=== PATIENT | female | born 1970 | race Hispanic/Latino ===

== ENCOUNTER 2017-05-20 19:51 | Emergency (ER) | payer BC, OTHER ==
[2017-05-20] MEDS ORDERED: SODIUM CHLORIDE 0.9% 1000ML 1,000 ML IV ONE (20:48)
[2017-05-20] MEDS ORDERED: KETOROLAC TROMETHAMINE 30MG/ML ONE (20:48)
[2017-05-20 20:57] LABS: APPEARANCE,URINE Clear (CLEAR); BILIRUBIN,URINE Negative (NEGATIVE); COLOR,URINE Yellow (YELLOW); GLUCOSE, URINE (UA) Negative (NEGATIVE); KETONES,URINE Negative (NEGATIVE); LEUKOCYTE ESTERASE ,URINE Small (NEGATIVE); NITRATE,URINE Negative (NEGATIVE); OCCULT BLOOD,URINE Negative (NEGATIVE); PROTEIN,URINE Negative (NEGATIVE); UROBILINOGEN,URINE 0.2 mg/dL (0.2-1.0)
[2017-05-20 21:09] LABS: BASOPHILS % (AUTO) 0.5 % (0.0-5.0); EOSINOPHILS % (AUTO) 3.4 % (0.0-8.0); HEMATOCRIT 34.8 % (36-48); LYMPHOCYTES % (AUTO) 35.1 % (21.0-51.0); MEAN CORPUSCULAR HEMOGLOBIN 29.7 pg (27.0-33.0); MEAN CORPUSCULAR HGB CONC 35.9 g/dL (32.0-36.0); MEAN CORPUSCULAR VOLUME 82.8 fL (79-99); MONOCYTES % (AUTO) 5.4 % (3.0-13.0); NEUTROPHILS % (AUTO) 55.6 % (40.0-77.0); NUCLEATED RED BLOOD CELLS 0.1 % (0.0-0.19); PLATELET COUNT (AUTO) 289 K/uL (130-400); RED CELL DISTRIBUTION WIDTH 13.2 % (11.0-15.5); WHITE BLOOD COUNT (AUTO) 8.3 K/uL (4.8-10.8)
[2017-05-20 21:32] LABS: CREATININE 0.6 mg/dL (0.5-1.5); POTASSIUM 3.6 mmol/L (3.5-5.1)
[2017-05-20 21:59] LABS: BACTERIA,URINE Rare /HPF (None Seen); MUCUS,URINE Rare LPF (None Seen); RBC,URINE 0-1 /HPF (0-1); SQUAMOUS EPITHELIAL CELL,UR Few /LPF (0-2)
== END 2017-05-20 22:59 | disposition home or self-care (01) ==
LOC: EDH 19:51
DX: R10.9 Unspecified abdominal pain (principal); N39.0 Urinary tract infection, site not specified; Z88.8 Allergy status to other drugs, medicaments and biological substances; Z90.710 Acquired absence of both cervix and uterus
CPT/HCPCS: 36415; 74176; 80048; 81001; 85025; 96361; 96374; 99285; J1885; J7030

== ENCOUNTER 2018-08-19 10:15 | Emergency (ER) | payer OTHER ==
[2018-08-19 10:41] LABS: BASOPHILS % (AUTO) 0.8 % (0.0-5.0); EOSINOPHILS % (AUTO) 3.1 % (0.0-8.0); HEMATOCRIT 37.2 % (36-48); LYMPHOCYTES % (AUTO) 33.6 % (21.0-51.0); MEAN CORPUSCULAR HEMOGLOBIN 29.1 pg (27.0-33.0); MEAN CORPUSCULAR HGB CONC 34.7 g/dL (32.0-36.0); MONOCYTES % (AUTO) 3.7 % (3.0-13.0); NEUTROPHILS % (AUTO) 58.8 % (40.0-77.0); PLATELET COUNT (AUTO) 262 K/uL (130-400); RED BLOOD CELL COUNT(AUTO) 4.43 MIL/uL (4.00-5.50); RED CELL DISTRIBUTION WIDTH 13.5 % (11.0-15.5); WHITE BLOOD COUNT (AUTO) 7.2 K/uL (4.8-10.8)
[2018-08-19 10:46] LABS: CREATININE 0.6 mg/dL (0.5-1.5); POTASSIUM 3.6 mmol/L (3.5-5.1)
[2018-08-19 10:51] LABS: ALBUMIN 3.7 g/dL (3.5-5.0); BILIRUBIN,TOTAL 0.3 mg/dL (0.2-1.0)
[2018-08-19] MEDS ORDERED: SODIUM CHLORIDE 0.9% 1000ML 1,000 ML IV ONE (11:02)
== END 2018-08-19 15:16 | disposition home or self-care (01) ==
LOC: EDH 10:15
DX: R00.2 Palpitations (principal); R07.89 Other chest pain; Z90.710 Acquired absence of both cervix and uterus; Z91.018 Allergy to other foods
CPT/HCPCS: 36415; 71045; 80053; 82550; 83735; 84443; 84484 ×2; 85025; 93005 ×2; 99285; J7030

== ENCOUNTER 2018-09-06 09:57 | Observation (INO) | payer BC, OTHER ==
[~2018-09-06] VITALS: Ht 157.5 cm; Wt 74.3 kg
[2018-09-06] MEDS ORDERED: ASPIRIN 325 MG TABLET ONE (10:13)
[2018-09-06 10:52] LABS: BASOPHILS % (AUTO) 0.6 % (0.0-5.0); EOSINOPHILS % (AUTO) 1.5 % (0.0-8.0); HEMATOCRIT 39.7 % (36-48); LYMPHOCYTES % (AUTO) 22.7 % (21.0-51.0); MEAN CORPUSCULAR HEMOGLOBIN 28.9 pg (27.0-33.0); MEAN CORPUSCULAR HGB CONC 34.5 g/dL (32.0-36.0); MEAN CORPUSCULAR VOLUME 83.8 fL (79-99); MONOCYTES % (AUTO) 5.2 % (3.0-13.0); NUCLEATED RED BLOOD CELLS 0.1 % (0.0-0.19); PLATELET COUNT (AUTO) 252 K/uL (130-400); RED BLOOD CELL COUNT(AUTO) 4.73 MIL/uL (4.00-5.50); RED CELL DISTRIBUTION WIDTH 13.1 % (11.0-15.5); WHITE BLOOD COUNT (AUTO) 7.2 K/uL (4.8-10.8)
[2018-09-06 11:02] LABS: CREATININE 0.6 mg/dL (0.5-1.5); POTASSIUM 3.8 mmol/L (3.5-5.1)
[2018-09-06 11:14] LABS: ALBUMIN 3.9 g/dL (3.5-5.0); BILIRUBIN,TOTAL 0.5 mg/dL (0.2-1.0); TOTAL PROTEIN, SERUM 8.2 g/dL (6.0-8.3)
[2018-09-06 11:19] LABS: PARTIAL THROMBOPLASTIN TIME 27.4 SEC (26.3-35.5); PROTHROMBIN TIME 10.5 SEC (9.6-11.6)
[2018-09-06 11:26] LABS: APPEARANCE,URINE Clear (CLEAR); BILIRUBIN,URINE Negative (NEGATIVE); COLOR,URINE Yellow (YELLOW); GLUCOSE, URINE (UA) Negative (NEGATIVE); KETONES,URINE Negative (NEGATIVE); LEUKOCYTE ESTERASE ,URINE Negative (NEGATIVE); NITRATE,URINE Negative (NEGATIVE); OCCULT BLOOD,URINE Negative (NEGATIVE); PROTEIN,URINE Negative (NEGATIVE); UROBILINOGEN,URINE 0.2 mg/dL (0.2-1.0)
[2018-09-06] MEDS: SODIUM CHLORIDE 0.9% 1000ML 1,000 ML IV SCH ×2 (13:56→23:28)
[2018-09-06] MEDS ORDERED: LACTULOSE 20 GM/30 ML UDCUP PO PRN (14:00)
[2018-09-06] MEDS ORDERED: MORPHINE SULFATE 2 MG/ML 1ML SYG IV PRN (14:00)
[2018-09-06] MEDS ORDERED: HYDRALAZINE HCL 20 MG/ML VIAL IV PRN (14:00)
[2018-09-06] MEDS: NITROGLYCERIN 1GM/1 INCH PACKET TD SCH ×2 (14:00→22:00)
[2018-09-06] MEDS ORDERED: ACETAMINOPHEN 325 MG TAB PO PRN ×2 (14:00)
[2018-09-06] MEDS ORDERED: ONDANSETRON HCL 4 MG/2 ML VIAL IV PRN (14:00)
[2018-09-06 14:22] LABS: HEMOGLOBIN A1C 5.4 % (4.0-6.0)
[2018-09-06] MEDS ORDERED: SODIUM CHLORIDE 0.9% 1000ML 1,000 ML IV ONE (14:36)
[2018-09-06] MEDS ORDERED: ENOXAPARIN SODIUM 40 MG/0.4 ML SYRINGE SQ ONE (17:32)
[2018-09-06] MEDS ORDERED: METOPROLOL TARTRATE 25 MG TAB ONE ×2 (17:33→21:47)
[2018-09-06] MEDS ORDERED: IPRATROPIUM/ALBUTEROL SULFATE 3 ML SOLUTION IH ONE (18:41)
[2018-09-06] MEDS ORDERED: METOPROLOL TARTRATE 25 MG TAB PO SCH (21:00)
[2018-09-06] MEDS: FAMOTIDINE/PF 20 MG/2 ML VIAL IV SCH (21:00)
[2018-09-06] MEDS ORDERED: FAMOTIDINE/PF 20 MG/2 ML VIAL IV ONE (21:47)
[2018-09-06 21:51] LABS: CREATINE KINASE, TOTAL 95 U/L (21-232); MYOGLOBIN 24 ng/mL (10-92); TROPONIN I < 0.04 ng/mL (0.00-0.06)
[2018-09-06 23:00] VITALS: BP 113/68
[2018-09-06] MEDS ORDERED: SIMV20TA6 PO (23:40)
[2018-09-06] MEDS ORDERED: ASPI-1181 PO (23:40)
[2018-09-07 04:00] VITALS: BP 98/54
[2018-09-07 06:02] LABS: CHOLESTEROL 168 mg/dL (<200); CREATINE KINASE, TOTAL 79 U/L (21-232); HDL CHOLESTEROL 25 mg/dL (35-85); LDL DIRECT 82 mg/dL (0-99); MYOGLOBIN 28 ng/mL (10-92); TRIGLYCERIDES 489 mg/dL (30-200); TROPONIN I < 0.04 ng/mL (0.00-0.06)
[2018-09-07] MEDS: NITROGLYCERIN 1GM/1 INCH PACKET TD SCH ×3 (06:48→22:00)
[2018-09-07 07:49] VITALS: BP 106/70
[2018-09-07] MEDS: FAMOTIDINE/PF 20 MG/2 ML VIAL IV SCH ×2 (08:53→20:30)
[2018-09-07] MEDS: SODIUM CHLORIDE 0.9% 1000ML 1,000 ML IV SCH (08:54)
[2018-09-07] MEDS ORDERED: ASPIRIN 325 MG TABLET PO SCH (09:00)
[2018-09-07] MEDS ORDERED: ENOXAPARIN SODIUM 40 MG/0.4 ML SYRINGE SQ SCH (09:00)
--- NOTE | 2018-09-07 10:46 | NUR ---
CONSULT FOR DR MUNOZ, NO EVIDENCE MD WAS NOTIFIED OF CONSULT BY ER, PLACED CALL TO OFFICE, UNABLE TO TRACK [facility] PHYSICIAN WAS NOTIFIED. MESSAGE OF CONSULT LEFT WITH OFFICE, WILL CONT TO MONITOR.
[2018-09-07] MEDS ORDERED: REGADENOSON 0.4 MG/5 ML PF SYG IVP SCH (11:15)
--- NOTE | 2018-09-07 13:28 | NUR ---
Nutrition intervention: Nutrition notification for allergy to caffeine. Recommend diet comment of Caffeine allergy when diet advances. MARIA DE JESUS has left diet education with nurse to provide to pt when she returns from procedure. RD to return and reenforce diet education. Recommendations: When medically feasible, advance diet therapy to Heart healthy. Please consult RD as nutrition concerns arise. Addendum: 09/07/18 at [address] Amended: Links added.
--- NOTE | 2018-09-07 16:00 | NUR ---
INITIAL MET W PT S/P ANISH, FAMILY IN ROOM, EATING, NO DISTRESS; T ADMIT W CARDIAC SYMPTOMS, IS EMPPLOYED, INDP NO DME AND DC PLAN HOME, WAITING ON [facility] RESULTS. Addendum: 09/08/18 at 0748 by KRISTY LEVY RN Amended: Links added.
[2018-09-07 16:30] VITALS: BP 111/56
[2018-09-07 19:35] VITALS: BP 106/64
[2018-09-07] MEDS ORDERED: SIMVASTATIN 20 MG TABLET PO SCH (21:00)
[2018-09-07 23:30] VITALS: BP 119/64
[2018-09-08 03:40] VITALS: BP 95/55
[2018-09-08] MEDS: NITROGLYCERIN 1GM/1 INCH PACKET TD SCH (05:02)
[2018-09-08 07:00] VITALS: BP 100/72
== END 2018-09-08 11:15 | disposition home or self-care (01) ==
LOC: EDH 09:57 → EDHIP 13:56 → 4BH 22:34
PROVIDERS: ADMIT Internal Medicine; ATTEND Internal Medicine
DX: R07.89 Other chest pain (principal); R55 Syncope and collapse; E78.2 Mixed hyperlipidemia; E78.1 Pure hyperglyceridemia; Z83.3 Family history of diabetes mellitus; Z90.710 Acquired absence of both cervix and uterus; Z90.49 Acquired absence of other specified parts of digestive tract; Z79.899 Other long term (current) drug therapy
CPT/HCPCS: 36415 ×2; 71045; 78452; 80053; 80061; 81003; 82550 ×3; 83036; 83874 ×3; 84484 ×3; 85025; 85378; 85610; 85730; 93005 ×3; 96361 ×2; 96372; 96374; 96376; 99283; A9500 ×2; G0378 ×42; J1650 ×2; J2405; J2785; J3490 ×3; J7030 ×2

== ENCOUNTER 2019-11-27 22:29 | Emergency (ER) | payer BC, OTHER ==
[~2019-11-27 22:29] MED LIST: ASPI-1443 PO; SIMV-43 PO
== END 2019-11-27 23:17 | disposition home or self-care (01) ==
LOC: EDH 22:29
DX: U07.1 COVID-19 (principal); I10 Essential (primary) hypertension; I48.91 Unspecified atrial fibrillation; E78.5 Hyperlipidemia, unspecified; Z88.8 Allergy status to other drugs, medicaments and biological substances; Z79.899 Other long term (current) drug therapy; Z90.49 Acquired absence of other specified parts of digestive tract; Z90.710 Acquired absence of both cervix and uterus
CPT/HCPCS: 93005

== ENCOUNTER 2021-09-18 10:06 | Emergency (ER) | payer OTHER ==
[~2021-09-18] VITALS: Ht 154.9 cm; Wt 78.9 kg
[2021-09-18 11:19] LABS: BASOPHILS % (AUTO) 0.3 % (0.0-5.0); EOSINOPHILS % (AUTO) 1.9 % (0.0-8.0); MEAN CORPUSCULAR HEMOGLOBIN 28.8 pg (27.0-33.0); MEAN CORPUSCULAR VOLUME 82.2 fL (79-99); MONOCYTES % (AUTO) 4.8 % (3.0-13.0); NEUTROPHILS % (AUTO) 71.4 % (40.0-77.0); PLATELET COUNT (AUTO) 205 K/uL (130-400); RED BLOOD CELL COUNT(AUTO) 4.38 MIL/uL (4.00-5.50); RED CELL DISTRIBUTION WIDTH 13.7 % (11.0-15.5); WHITE BLOOD COUNT (AUTO) 6.2 K/uL (4.8-10.8)
[2021-09-18] MEDS ORDERED: 0.9%NACL 1000ML 1,000 ML IV ONE (11:30)
[2021-09-18 11:32] LABS: APPEARANCE,URINE CLEAR (CLEAR); BILIRUBIN,URINE NEGATIVE (NEGATIVE); COLOR,URINE YELLOW (YELLOW); GLUCOSE, URINE (UA) NEGATIVE (NEGATIVE); KETONES,URINE NEGATIVE (NEGATIVE); LEUKOCYTE ESTERASE ,URINE NEGATIVE (NEGATIVE); NITRATE,URINE NEGATIVE (NEGATIVE); OCCULT BLOOD,URINE TRACE-INTACT (NEGATIVE); PROTEIN,URINE NEGATIVE (NEGATIVE); UROBILINOGEN,URINE 0.2 mg/dL (0.2-1.0)
[2021-09-18 11:49] LABS: BACTERIA,URINE Rare /HPF (None Seen); RBC,URINE 0-1 /HPF (0-1); SQUAMOUS EPITHELIAL CELL,UR Rare /HPF (0-2); WBC,URINE 0-1 /HPF (0-1)
[2021-09-18 11:52] LABS: ALBUMIN 3.8 g/dL (3.5-5.0); BILIRUBIN,TOTAL 0.4 mg/dL (0.2-1.0); CREATININE 0.6 mg/dL (0.5-1.5); POTASSIUM 3.5 mmol/L (3.5-5.1); TOTAL PROTEIN, SERUM 7.4 g/dL (6.0-8.3)
[2021-09-18] MEDS ORDERED: DICYCLOMINE HCL 10 MG/5 ML ML PO ONE (12:25)
[2021-09-18] MEDS ORDERED: MAG/ALUM/SIMETH 30 ML UDCUP ONE (12:25)
[2021-09-18] MEDS ORDERED: LIDOCAINE HCL 2% VISCOUS 15 ML UDCUP ONE (12:25)
[2021-09-18] MEDS ORDERED: AMOX1TAB16 PO (12:53)
[2021-09-18] MEDS ORDERED: PANT40TA PO (12:53)
[2021-09-18] MEDS ORDERED: FLUT16H NASAL (12:53)
[2021-09-18] MEDS ORDERED: DICYCLOMINE HCL 10 MG/5 ML ML PO SCH (13:00)
[2021-09-18] MEDS ORDERED: LIDOCAINE HCL 2% VISCOUS 15 ML UDCUP PO ONE (13:00)
[2021-09-18] MEDS ORDERED: MAG/ALUM/SIMETH 30 ML UDCUP PO ONE (13:00)
[2021-09-18 13:09] VITALS: BP 111/63
== END 2021-09-18 13:14 | disposition home or self-care (01) ==
LOC: EDH 10:06
DX: J32.9 Chronic sinusitis, unspecified (principal); K29.70 Gastritis, unspecified, without bleeding; E86.0 Dehydration; Z20.822 Contact with and (suspected) exposure to COVID-19; E78.00 Pure hypercholesterolemia, unspecified; Z90.49 Acquired absence of other specified parts of digestive tract; Z98.890 Other specified postprocedural states; Z79.82 Long term (current) use of aspirin; Z79.899 Other long term (current) drug therapy; Z88.5 Allergy status to narcotic agent
CPT/HCPCS: 36415; 80053; 81001; 85025; 87635; 87804 ×2; 96360; 99284; C9803; J7030

== ENCOUNTER 2021-11-18 20:27 | Emergency (ER) | payer OTHER ==
[~2021-11-18] VITALS: Ht 154.9 cm; Wt 79.8 kg
[~2021-11-18 20:27] MED LIST changes: +AMOX1TAB16 PO; +FLUT16H NASAL; +PANT40TA PO
[2021-11-18 20:28] VITALS: BP 160/83
[2021-11-18] MEDS ORDERED: LORAZEPAM 1 MG TABLET PO ONE (21:00)
[2021-11-18 21:07] LABS: BASOPHILS % (AUTO) 0.3 % (0.0-5.0); EOSINOPHILS % (AUTO) 2.5 % (0.0-8.0); HEMATOCRIT 35.4 % (36-48); LYMPHOCYTES % (AUTO) 32.9 % (21.0-51.0); MEAN CORPUSCULAR HEMOGLOBIN 28.3 pg (27.0-33.0); MEAN CORPUSCULAR HGB CONC 34.2 g/dL (32.0-36.0); MEAN CORPUSCULAR VOLUME 82.9 fL (79-99); MONOCYTES % (AUTO) 4.8 % (3.0-13.0); NEUTROPHILS % (AUTO) 59.1 % (40.0-77.0); PLATELET COUNT (AUTO) 246 K/uL (130-400); RED BLOOD CELL COUNT(AUTO) 4.27 MIL/uL (4.00-5.50); RED CELL DISTRIBUTION WIDTH 12.5 % (11.0-15.5); WHITE BLOOD COUNT (AUTO) 7.7 K/uL (4.8-10.8)
[2021-11-18 21:18] LABS: INR 1.05 (0.85-1.15); PROTHROMBIN TIME 11.4 SEC (9.6-11.6)
[2021-11-18 21:19] LABS: PARTIAL THROMBOPLASTIN TIME 28.3 SEC (26.3-35.5)
[2021-11-18 21:21] LABS: CREATININE 0.7 mg/dL (0.5-1.5); POTASSIUM 3.4 mmol/L (3.5-5.1)
[2021-11-18 21:32] LABS: TOTAL PROTEIN, SERUM 8.1 g/dL (6.0-8.3)
[2021-11-18] MEDS ORDERED: HYDR-3421 PO (22:48)
== END 2021-11-18 22:55 | disposition home or self-care (01) ==
LOC: EDH 20:27
DX: F41.9 Anxiety disorder, unspecified (principal); R07.89 Other chest pain; E78.00 Pure hypercholesterolemia, unspecified; Z79.82 Long term (current) use of aspirin; Z90.49 Acquired absence of other specified parts of digestive tract
CPT/HCPCS: 36415; 71045; 80053; 83690; 84484; 84703; 85025; 85610; 85730; 93005

== ENCOUNTER → 2021-12-29 | Outpatient (CLI) | payer OTHER ==
[~2021-12-29] MED LIST changes: +HYDR-3421 PO
== END | disposition home or self-care (01) ==
LOC: RAH 13:24
PROVIDERS: ATTEND Internal Medicine Cardiovascular Disease
DX: Z13.6 Encounter for screening for cardiovascular disorders (principal)
CPT/HCPCS: 75571

== ENCOUNTER 2024-11-24 10:05 | Emergency (ER) | payer BC, OTHER ==
[~2024-11-24] VITALS: Ht 152.4 cm; Wt 71.7 kg
[2024-11-24] MEDS ORDERED: FAMO-136 PO (10:24)
[2024-11-24] MEDS ORDERED: DIPH50CA38 PO (10:24)
--- NOTE | 2024-11-24 10:26 | ERN ---
ED Note History of Present Illness Stated Complaint: ALLERGIC REACTION Chief Complaint: Allergic Reaction Time Seen by MD: 10:07 Dictation: PATIENT IS A 54-YEAR-OLD FEMALE COMING IN WITH MILDLY EDEMATOUS LIPS AND COMPLAINING OF A URTICARIAL RASH. SHE STATES THE RASH STARTED MONDAY. SHE DOES NOT HAVE ANY SOB NO NAUSEA VOMITING NO HEADACHE. SHE STATES THE ONLY THING NEW IN HER LIFE SHE GOT NEW SHEETS FOR HER BED ON MONDAY AND PUT HIM ON MONDAY MORNING. SHE SAID SHE DOES NOT WASH THE SHEET SO SHE DOES NOT UNSURE OF THE DETERGENT THAT WAS USED HOWEVER THAT IS WHEN IT STARTED. SHE SAID ALSO HER RASH GOES AWAY WHEN SHE TAKES BENADRYL. I STRONGLY ADVISED PATIENT TO TAKE THE SHEETS OFF OF HER BED AND CHANGED SHEETS UNTIL SHE COULD GET THOSE WASHED IN A NEW DETERGENT OR TALKED TO HER DOCTOR. Allergies: Coded Allergies: Corticosteroids (Glucocorticoids) (Unverified Allergy, Unknown, 11/24/24) No Known Drug Allergies (Verified Allergy, Unknown, 09/06/18) caffeine (Unverified Adverse Reaction, Severe, TACHYCARDIA, 09/06/18) Home Meds Active Scripts Hydroxyzine HCl (Hydroxyzine HCl) 25 Mg Tablet, 25 MG PO TIDP, #45 TAB Prov:JENNIFER WALLACE 11/18/21 Fluticasone Propionate (Flonase Nasal [place]) 50 Mcg/[place], 50 MCG NASAL BID for 7 Days, #14 SPRAY Prov:SHYAM GAMEZ MD 09/18/21 Pantoprazole Sodium (Protonix) 40 Mg Tablet.dr, 40 MG PO DAILY for 30 Days, #30 TAB Prov:SHYAM GAMEZ MD 09/18/21 Amoxicillin/Potassium Clav (Amox Tr-K Clv 875-125 mg Tab) 1 Each Tablet, 1 EACH PO BID for 7 Days, #14 TAB Prov:SHYAM GAMEZ MD 09/18/21 Reported Medications Simvastatin (Simvastatin) 20 Mg Tablet, 20 MG PO HS 09/06/18 Aspirin (Aspirin EC) 81 Mg Tablet.dr, 81 MG PO DAILY 09/06/18 Past Medical History Past Medical History: Anxiety, High Cholesterol Surgical History: Hysterectomy, Cholecystectomy, Family History: Negative Social History: Negative History: Not Applicable RN Note Reviewed/Agreed w/PFSH: Yes Review of System Dictation CONSTITUTIONAL: NEGATIVE EXCEPT FOR HPI HEAD/FACE: NEGATIVE EXCEPT FOR HPI EENT: NEGATIVE EXCEPT FOR HPI ANGIOEDEMA OF THE LIPS RESPIRATORY: NEGATIVE EXCEPT FOR HPI GASTROINTESTINAL/ABDOMINAL: NEGATIVE EXCEPT FOR HPI GENITOURINARY: NEGATIVE EXCEPT FOR HPI MUSCULOSKELETAL: NEGATIVE EXCEPT FOR HPI INTEGUMENTARY: NEGATIVE EXCEPT FOR HPI URTICARIAL RASH NEUROLOGICAL/PSYCH: NEGATIVE EXCEPT FOR HPI HEMATOLOGIC/LYMPHATIC: NEGATIVE EXCEPT FOR HPI ALL SYSTEMS NEGATIVE, EXCEPT NOTED ABOVE. 13 POINT REVIEW OF SYSTEMS ASSESSED AND ALL NEGATIVE EXCEPT FOR ABOVE. Initial Vital Sign VS Vital Signs Date Time Temp Pulse Resp B/P (MAP) Pulse Ox O2 Delivery O2 Flow Rate FiO2 11/24/24 10:07 98.1 97 18 158/69 98 Room Air Physical Exam Dictation VITAL SIGNS REVIEWED GENERAL APPEARANCE: ALERT, ORIENTED X 3, NO ACUTE DISTRESS, WELL DEVELOPED, NOURISHED. HEAD AND FACE: NON-TRAUMATIC. EYES: PERRL, PINK CONJUNCTIVAS, EYELID NO TRAUMA, ANTERIOR CHAMBER WITH ARCUS SENILIS. EARS: PINNAS INTACT AND NO SIGNS OF TRAUMA OR ERYTHEMA EAR CANALS CLEAR AND NO DISCHARGE TM NO ERYTHEMA NOSE: NO DISCHARGE, NO BLEEDING. OROPHARYNX: MOUTH NORMAL, TONGUE PINK, MILD ANGIOEDEMA OF THE LIPS, VOICE IS CLEAR NO STRIDOR PHARYNX CLEAR,NO ERYTHEMA, TONSILS NO EXUDATES, NO ABSCESSES NOTED, MUCOUS MEMBRANE MOIST NECK: SUPPLE, NON-TENDER, NO THYROMEGALY, NO MASSES, NO JVD, NO BRUITS BREAST:DEFERRED CHEST:NO TENDERNESS, NO CREPITUS, NO PARADOXICAL MOVEMENT, NO RETRACTIONS LUNGS:CLEAR, WELL-VENTILATED, SYMMETRIC, NO RALES, NO WHEEZING, NO RHONCHI, NO STRIDOR, GOOD BREATH SOUNDS BILATERALLY HEART: REGULAR RATE, REGULAR RHYTHM, NO MURMUR, NO GALLOPS VASCULAR: NO PERIPHERAL EDEMA, ABDOMEN: SOFT, POSITIVE BOWEL SOUNDS, NONDISTENDED, NO GUARDING, NONTENDER, NO REBOUND, NO MASSES NO HEPATOMEGALY, NO SPLENOMEGALY, NO MORRELL'S SIGN, NO HERNIAS. RECTAL: DEFERRED GENITAL: DEFERRED NEUROLOGICAL: NORMAL SPEECH, MOTOR FUNCTION INTACT, SENSORY FUNCTION INTACT MUSCULOSKELETAL: NECK NONTENDER, FULL RANGE OF MOTION, BACK NONTENDER, FULL RANGE OF MOTION, EXTREMITIES: NONTENDER, FULL RANGE OF MOTION SKIN: COLOR PINK, DRY URTICARIAL RASH LYMPHATIC: DEFERRED E. Results (Laboratory/Radiology) Labs Reviewed?: Yes ED Course ED Course Orders Procedure Category Date Status Time Diphenhydramine Hcl PHA 11/24/24 Transmitted (Benadryl Inj) 10:09 Famotidine 20mg Tab PHA 11/24/24 Transmitted (Pepcid 20mg Tab) 10:30 Vital Signs Date Time Temp Pulse Resp B/P (MAP) Pulse Ox O2 Delivery O2 Flow Rate FiO2 11/24/24 10:07 98.1 97 18 158/69 98 Room Air 1020/PATIENT WAS STRONGLY ADVISED TO STOP THE OFFENDING AGENT WHICH WOULD BE THE NEW SHEETS. I SUGGESTED SHE CHANGES HER OLD SHEETS CONTINUE BENADRYL AND PEPCID SEE HER DOCTOR ON MONDAY. Medical Decision Making MDM MEDICAL DECISION-MAKING BASED ON EMPIRIC TREATMENT FOR MILD ANGIOEDEMA AND URTICARIAL RASH. PATIENT RESPONDED WELL TO BENADRYL IM AND PEPCID. DISCHARGED HOME WITH BENADRYL AND PEPCID SINCE SHE IS ALLERGIC CORTICAL STEROIDS STRONGLY ADVISED TO STOP THE NEW SHEETS ON HER BED SEE HER DOCTOR ON MONDAY DX & DISP Disposition: Discharge Departure Impression: Primary Impression: Acute allergic reaction Additional Impressions: Urticarial rash, Angioedema of lips Condition: Stable Scripts Diphenhydramine HCl (Benadryl) 50 Mg Cap 50 MG PO Q6H for itching/rash, #20 CAP 0 Refills Prov: ADEOLA GRANT DOCUMENT CONTROL MANAGER 11/24/24 Famotidine (Pepcid) 20 Mg Tablet 1 TAB PO BID for 30 Days, #60 TAB 0 Refills Prov: ADEOLA GRANT DOCUMENT CONTROL MANAGER 11/24/24 Additional Instructions: FOLLOW-UP WITH PRIMARY CARE PROVIDER IN 1 TO 2 DAYS. TAKE MEDICATIONS DIRECTED HERE IN THE EMERGENCY ROOM. OKAY TO CONTINUE HOME MEDICATIONS UNLESS OTHERWISE DISCUSSED DURING YOUR VISIT IN THE EMERGENCY ROOM TODAY. RETURN TO YOUR NEAREST EMERGENCY ROOM IF SYMPTOMS WORSEN OR IF THERE IS NO IMPROVEMENT. C ALL 911 IF YOU NEED IMMEDIATE ASSISTANCE. TAKE TYLENOL OR MOTRIN [id number] NEEDED AND IF NO CONTRAINDICATIONS ARE PRESENT. INCREASE ORAL HYDRATION. A WOUND CULTURE OR URINE CULTURE WAS ORDERED HERE IN THE EMERGENCY ROOM DEPARTMENT PLEASE FOLLOW-UP WITH PRIMARY CARE PROVIDER AND ADVISE THEM TO GET REPEAT PORTS FROM OUR FACILITY. IF YOU HAD ANY MARILUZ WRAP/SPLINTS THAT WERE APPLIED HERE, PLEASE DO NOT REMOVE THEM UNTIL YOU SEE YOUR PRIMARY CARE OR SPECIALTY. TAKE BENADRYL 50 MG EVERY 6 HOURS FOR THREE MORE DOSES. TAKE PEPCID TWICE A DAY FOR THE NEXT 10 DAYS. GO HOME AND CHANGE YOUR BED SHEETS TO YOUR OLD SHEETS AND SEE YOUR DOCTOR ON MONDAY FOR FOLLOW UP AND ALLERGY REFERRAL Referrals: VIOLA DE LA ROSA (PCP) Time of Disposition: 10:22 I have reviewed the case, and I agree with, Diagnosis and Plan ADEOLA GRANT NP Nov 24, 2024 10:26
[2024-11-24] MEDS: FAMOTIDINE 20MG TAB PO ONE (10:28)
[2024-11-24 10:58] VITALS: BP 117/71; PULSE 80; RESP 16; TEMP 98.6; O2SAT 100
--- NOTE | 2024-11-24 11:03 | NUR ---
DC PATIENT WAS DC'D BY ADEOLA GRANT MASK DESIGNER I EXPLAINED TO PATIENT TO FOLLOW UP WITH PCP, PROVIDED INFO BASED ON DIAGNOSIS AND ANSWERED ANY FOLLOW UP QUESTIONS, PATIENT AMBULATED OUT OF ED, NO COMPLICATIONS
== END 2024-11-24 10:58 | disposition home or self-care (01) ==
LOC: EDH 10:05
DX: T78.3XXA Angioneurotic edema, initial encounter (principal); T78.40XA Allergy, unspecified, initial encounter; R21 Rash and other nonspecific skin eruption; E78.00 Pure hypercholesterolemia, unspecified; F41.9 Anxiety disorder, unspecified; Z79.82 Long term (current) use of aspirin; Z79.899 Other long term (current) drug therapy; Z90.49 Acquired absence of other specified parts of digestive tract; Z90.710 Acquired absence of both cervix and uterus; X58.XXXA Exposure to other specified factors, initial encounter
CPT/HCPCS: 99284; 96372; J1200

== ENCOUNTER 2024-12-13 22:45 | Emergency (ER) | payer BC ==
[~2024-12-13] VITALS: Ht 152.4 cm; Wt 74.4 kg
[~2024-12-13 22:45] MED LIST changes: +DIPH50CA38 PO; +FAMO-136 PO
[2024-12-13] MEDS: FAMOTIDINE 20MG VIAL IV ONE (23:35)
[2024-12-13] MEDS: 0.9%NACL 1000ML 1,000 ML IV ONE (23:36)
[2024-12-14 00:19] VITALS: BP 111/72; PULSE 82; RESP 17; TEMP 98.4; O2SAT 99
[2024-12-14] MEDS ORDERED: DIPH25TA51 PO (00:29)
--- NOTE | 2024-12-14 00:31 | ERN ---
General Chief Complaint: Allergic Reaction Stated Complaint: SWELLING TO LIPS, HIVES Time Seen by MD: 22:47 Time Seen by Midlevel: 22:47 Source: patient History of Present Illness Initial Comments 54-year-old female presenting to the emergency department for evaluation of generalized hives. She noticed swelling to her lips and face that occurred today at 3:00 p.m.. She denies any other symptoms Allergies: Coded Allergies: Corticosteroids (Glucocorticoids) (Unverified Allergy, Unknown, 11/24/24) No Known Drug Allergies (Verified Allergy, Unknown, 09/06/18) caffeine (Unverified Adverse Reaction, Severe, TACHYCARDIA, 09/06/18) Home Meds Active Scripts Diphenhydramine HCl (Benadryl Allergy) 25 Mg Tablet, 2 TAB PO HS for 7 Days, #14 TAB 0 Refills Prov:EUSEBIA JONAS 12/14/24 Diphenhydramine HCl (Benadryl) 50 Mg Cap, 50 MG PO Q6H for itching/rash, #20 CAP 0 Refills Prov:ADEOLA GRANT NP 11/24/24 Famotidine (Pepcid) 20 Mg Tablet, 1 TAB PO BID for 30 Days, #60 TAB 0 Refills Prov:ADEOLA GRANT NP 11/24/24 Hydroxyzine HCl (Hydroxyzine HCl) 25 Mg Tablet, 25 MG PO TIDP, #45 TAB Prov:JENNIFER WALLACE 11/18/21 Fluticasone Propionate (Flonase Nasal [place]) 50 Mcg/[place], 50 MCG NASAL BID for 7 Days, #14 SPRAY Prov:SHYAM GAMEZ MD 09/18/21 Pantoprazole Sodium (Protonix) 40 Mg Tablet., 40 MG PO DAILY for 30 Days, #30 TAB Prov:SHYAM GAMEZ MD 09/18/21 Amoxicillin/Potassium Clav (Amox Tr-K Clv 875-125 mg Tab) 1 Each Tablet, 1 EACH PO BID for 7 Days, #14 TAB Prov:SHYAM GAMEZ MD 09/18/21 Reported Medications Simvastatin (Simvastatin) 20 Mg Tablet, 20 MG PO HS 09/06/18 Aspirin (Aspirin EC) 81 Mg Tablet.dr, 81 MG PO DAILY 09/06/18 Past Medical History Past Medical History: Anxiety, High Cholesterol, Other Medical History Other: RT BREAST CANCER Past Surgical History: Hysterectomy, Cholecystectomy, Other, Surgical History Other: RT BREAST Family History Family History: Negative Social History Social History: Negative Female( History) History: Not Applicable ROS Dictation CONSTITUTIONAL: Negative except for HPI HEAD/FACE: Negative except for HPI EENT: Negative except for HPI RESPIRATORY: Negative except for HPI GASTROINTESTINAL/ABDOMINAL: Negative except for HPI GENITOURINARY: Negative except for HPI MUSCULOSKELETAL: Negative except for HPI INTEGUMENTARY: Negative except for HPI NEUROLOGICAL/PSYCH: Negative except for HPI HEMATOLOGIC/LYMPHATIC: Negative except for HPI All Systems Negative, Except as noted above. 13 point review of systems assessed and all negative except for above. Physical Exam Physical Exam Dictation Vital Signs reviewed General Appearance: Alert, oriented x 3, no acute distress, well developed, nourished. Head and Face: non-traumatic. Eyes: PERRL, pink conjunctivas, eyelid no trauma, anterior chamber with arcus s enilis. Ears: Pinnas intact and no signs of trauma or erythema ear canals clear and no discharge TM no erythema Nose: No discharge, no bleeding. Oropharynx: Mouth normal, tongue pink, pharynx clear,no erythema, tonsils no exudates, no abscesses noted, mucous membrane moist Neck: Supple, non-tender, no thyromegaly, no masses, no JVD, no bruits Breast:Deferred Chest:No tenderness, no crepitus, no paradoxical movement, no retractions Lungs:Clear, well-ventilated, symmetric, no rales, no wheezing, no rhonchi, no stridor, good breath sounds bilaterally Heart: Regular rate, regular rhythm, no murmur, no gallops Vascular: no peripheral edema, Abdomen: Soft, positive bowel sounds, nondistended, no guarding, nontender, no rebound, no masses no hepatomegaly, no splenomegaly, no Pettit's sign, no hernias. Rectal: Deferred Genital: Deferred Neurological: Normal speech, motor function intact, sensory function intact Musculoskeletal: Neck nontender, full range of motion, back nontender, full range of motion, Extremities: nontender, full range of motion Skin: Color pink, dry, no turgor, no rash, no lacerations, no abrasions, no contusions. Lymphatic: Deferred MDM MDM: Differential diagnosis: Acute allergic reaction, anaphylaxis, contact dermatitis There are no social concerns with this patient. Prescription drug management Prescriptions will include: Benadryl Medical management and examination interpretation discussions were had by me with other qualified healthcare professionals as indicated for the patient's care. ED Course Orders Procedure Category Date Status Time Famotidine 20mg Vial PHA 12/13/24 Complete (Pepcid 20mg Vial) 23:30 Diphenhydramine Hcl PHA 12/13/24 Complete (Benadryl Inj) 23:30 0.9%Nacl 1000ml (Ns PHA 12/13/24 Complete 1000ml) 23:30 Current Medications Medications (Trade) Dose Ordered Sig/Mane Route PRN Reason Start Time Stop Time Status Last Admin Dose Admin Diphenhydramine HCl (BENAdryl INJ) 25 mg ONCE ONCE IV 12/13/24 23:30 12/13/24 23:31 DC 12/13/24 23:35 Famotidine (Pepcid 20mg Vial) 20 mg ONCE ONCE IV 12/13/24 23:30 12/13/24 23:31 DC 12/13/24 23:35 Sodium Chloride 1,000 ml @ 0 mls/hr ONCE ONCE IV 12/13/24 23:30 12/13/24 23:31 DC 12/13/24 23:36 Vital Signs Date Time Temp Pulse Resp B/P (MAP) Pulse Ox O2 Delivery O2 Flow Rate FiO2 12/14/24 00:19 98.4 82 17 111/72 99 Room Air* 0 21 12/13/24 23:50 98.2 79 18 124/77 98 Room Air* 0 21 12/13/24 22:46 98.1 91 20 114/71 98 Room Air DX & DISP Disposition: Discharge Departure Impression: Primary Impression: Acute allergic reaction Condition: Stable Scripts Diphenhydramine HCl (Benadryl Allergy) 25 Mg Tablet 2 TAB PO HS for 7 Days, #14 TAB 0 Refills Prov: EUSEBIA JONAS 12/14/24 Referrals: EUSEBIA BUTT MD (PCP) Time of Disposition: 00:29 I have reviewed the case, and I agree with, Diagnosis and Plan I performed the substantive portion of the visit. I have reviewed and personally made and approve the management plan that is documented in the note by myself or the BIBI. I acknowledge for responsibility for the patient's management plan. EUSEBIA JONAS Dec 14, 2024 00:31
== END 2024-12-14 00:39 | disposition home or self-care (01) ==
LOC: EDH 22:45
DX: T78.40XA Allergy, unspecified, initial encounter (principal); E78.00 Pure hypercholesterolemia, unspecified; F41.9 Anxiety disorder, unspecified; Z79.82 Long term (current) use of aspirin; Z79.899 Other long term (current) drug therapy; Z85.3 Personal history of malignant neoplasm of breast; Z90.49 Acquired absence of other specified parts of digestive tract; Z90.710 Acquired absence of both cervix and uterus; X58.XXXA Exposure to other specified factors, initial encounter
CPT/HCPCS: 99284; 96374; 96375; J1200; J1308; J7030